=== PATIENT | female | born 1935 | race Caucasian/White ===

== ENCOUNTER 2016-07-24 14:37 | Emergency (ER) | payer MEDICARE ==
--- NOTE | ~2016-07-24 | CT71 ---
[facility] A Service [facility] RADIOLOGY TEXT RESULTS PATIENT: DENA BURNETTE LOCATION: SED : 37 UNIT #: [id number] AGE: [address]: Amalia Rand MD SEX: F ORDER DR: [id number] [place] [id number] E MR#: [id number] Acc #: [id number] NAME: DENA BURNETTE : 1935 SEX: F STUDY DATE/TIME: 07/24/2016 13:58 UNIT: SED ROOM: STUDY DESCRIPTION: CT Head Wo Contrast Attending Physician: Manpreet Schilling M.D. Referring Physician: Manpreet Schilling M.D. Ordering Physician: Manpreet Schilling M.D. Primary Care Physician: Maria C Dorantes M.D. MEDICAL IMAGING REPORT This report is preliminary unless electronic signature is present. EXAM CT head without contrast dated 07/24/[address] head without contrast dated 10/16/2010 HISTORY Patient fell at home while walking today. TECHNIQUE This CT exam was performed with one or more of the following radiation dose reduction techniques: automatic exposure control, adjustment of mA and/or kV according to patient size, and iterative reconstruction. FINDINGS Age-appropriate parenchymal volume is seen. Mild hypodensity is noted in the periventricular white matter. No acute intracranial hemorrhage, space-occupying mass, mass effect, midline shift or hydrocephalus. Paranasal sinuses and mastoid air cells are well-aerated. Imaged orbits with the ocular structures do not demonstrate any significant abnormality. IMPRESSION 1. No acute intracranial abnormality. 2. Mild hypodensities are noted in the periventricular white matter, likely related to mild chronic microvascular ischemic change or migraine based on age and statistics. 1. Dictated by... Herrera Oconnell M.D. THIS IS AN ELECTRONICALLY VERIFIED REPORT Herrera Oconnell M.D. at 07/27/2016 1:38 PM [facility] A Service [facility] RADIOLOGY TEXT RESULTS PATIENT: DENA BURNETTE LOCATION: [facility] : 37 UNIT #: [id number] AGE: [address]: Amalia Rand MD SEX: F ORDER DR: TRUE/gaston TD: 07/24/2016 18:03 JOB #: [id number] MEDICAL IMAGING REPORT Page 1 of 1
--- NOTE | ~2016-07-24 | CT101 ---
[facility] A Service of [facility] RADIOLOGY TEXT RESULTS PATIENT: DENA BURNETTE LOCATION: SED : 37 UNIT #: [id number] AGE: [address]: Amalia Rand MD SEX: F ORDER DR: [id number] [place] [id number] E MR#: [id number] Acc #: [id number] NAME: DENA BURNETTE : 1935 SEX: F STUDY DATE/TIME: 07/24/2016 14:10 UNIT: SED ROOM: STUDY DESCRIPTION: CT Maxillofacial Area Wo Cont Attending Physician: Manpreet Schilling M.D. Referring Physician: Manpreet Schilling M.D. Ordering Physician: Manpreet Schilling M.D. Primary Care Physician: Maria C Dorantes M.D. MEDICAL IMAGING REPORT This report is preliminary unless electronic signature is present. EXAM CT face without contrast 07/24/2016 at 14:10 HISTORY 80-year-old female with bruising of the nose and lip after falling at home today. Hypertension, diabetes. COMPARISON Noncontrast CT head 07/24/2016. TECHNIQUE This CT exam was performed with one or more of the following radiation dose reduction techniques: automatic exposure control, adjustment of mA and/or kV according to patient size, and iterative reconstruction. FINDINGS No acute displaced facial fracture is identified. Major paranasal sinuses appear clear. Mild bony nasal septal deviation toward the right. No temporal mandibular joint dislocation. The mastoid air cells are clear. Visualized brain parenchyma appears moderately atrophic. IMPRESSION 1. No acute facial fracture. Dictated by... Ivett Kraus M.D. THIS IS AN ELECTRONICALLY VERIFIED REPORT Ivett Kraus M.D. at 07/27/2016 8:37 AM LLH/pcl [facility] A Service of [facility] RADIOLOGY TEXT RESULTS PATIENT: DENA BURNETTE LOCATION: SED : 37 UNIT #: [id number] AGE: [address]: Amalia Rand MD SEX: F ORDER DR: TD: 07/24/2016 19:25 JOB #: [id number] MEDICAL IMAGING REPORT Page 1 of 1
--- NOTE | ~2016-07-24 | CT52 ---
[facility] A Service of [facility] RADIOLOGY TEXT RESULTS PATIENT: DENA BURNETTE LOCATION: SED : 37 UNIT #: [id number] AGE: [address]: Amalia Rand MD SEX: F ORDER DR: [id number] [place] [id number] E MR#: [id number] Acc #: [id number] NAME: DENA BURNETTE : 1935 SEX: F STUDY DATE/TIME: 07/24/2016 14:12 UNIT: SED ROOM: STUDY DESCRIPTION: CT Cervical Spine Wo Cont Attending Physician: Manpreet Schilling M.D. Referring Physician: Manpreet Schilling M.D. Ordering Physician: Manpreet Schilling M.D. Primary Care Physician: Maria C Dorantes M.D. MEDICAL IMAGING REPORT This report is preliminary unless electronic signature is present. EXAM CT cervical spine without contrast DATE 07/24/2016 HISTORY Fell at home today. Cut left cheek. Nose and lip bruising. Patient does not remember what happened. Hypertension. Diabetes. COMPARISON None. PROCEDURE 2 mm noncontrast axial images through the cervical spine. Sagittal coronal reformed images were obtained. This CT exam was performed with one or more of the following radiation dose reduction techniques: automatic exposure control, adjustment of mA and/or kV according to patient size, and iterative reconstruction. FINDINGS Study is degraded by patient motion. There is approximate 3 mm of anterolisthesis C2 upon C3 and C4 upon C5. There is degenerative loss of disc height with endplate sclerosis and endplate subchondral cystic change and anterior and posterior osteophyte formation at C5-6 and C6-7. Craniocervical junction appears intact. Facet arthropathy greatest on the right at C3-4 and C5-6. Multilevel neural foraminal narrowing thought to be greatest on the left at C6-7 with severe foraminal stenosis and moderate to severe canal stenosis at that level. Emphysematous changes in lung apices. Degenerative changes in the sternoclavicular joints. [facility] A Service of [facility] RADIOLOGY TEXT RESULTS PATIENT: DENA BURNETTE LOCATION: SED : 37 UNIT #: [id number] AGE: [address]: Amalia Rand MD SEX: F ORDER DR: IMPRESSION 1. No acute cervical spine fracture is seen. 2. Advanced degenerative disc and endplate changes at C5-6 and C6-7. 3. 3 mm anterolisthesis of C2 upon C3 and C4 upon C5 thought to be related to degenerative facet changes. 4. Moderate to severe canal stenosis at C6-7 with severe left neural foraminal narrowing secondary to posterior osteophyte formation uncovertebral spurring. Dictated by... Ivett Kraus M.D. THIS IS AN ELECTRONICALLY VERIFIED REPORT Ivett Kraus M.D. at 07/27/2016 8:37 AM MARLA/angela TD: 07/24/2016 19:46 JOB #: [id number] MEDICAL IMAGING REPORT Page 1 of 1
[2016-07-24 14:12] LABS: BASOPHIL% 0.5 % (0-2.5); EOSINOPHIL# 0.2 X10e3 (0-0.7); EOSINOPHIL% 1.9 % (0.0-7.0); HEMATOCRIT 35.4 % (35.0-45.0); HEMOGLOBIN 11.5 gm/dL (12.0-16.0); LYMPHOCYTE# 1.7 X10e3 (1.0-3.5); LYMPHOCYTE% 17.4 % (17.0-45.0); MEAN CELL VOLUME 88.9 FL (83-96); MEAN CORPUSCULAR HEMOGLOBIN 28.8 PG (28-34); MEAN CORPUSCULAR HGB CONC 32.4 g/dL (30-36); MEAN PLATELET VOLUME 9.4 FL (6.5-11.5); MONOCYTE# 0.4 X10e3 (0-1.0); MONOCYTE% 4.6 % (3.0-12.0); NEUTROPHIL# 7.2 X10e3 (1.5-7.1); NEUTROPHIL% 75.6 % (40-75); PLATELET COUNT 187 X10e3 (140-420); RED BLOOD COUNT 3.99 X10e (3.90-5.30); RED CELL DISTRIBUTION WIDTH 15.2 % (11.0-15.5); WHITE BLOOD COUNT 9.5 X10e3 (4.0-10.5)
[2016-07-24 14:15] LABS: DIFF IND NO
[2016-07-24 14:36] LABS: ALBUMIN SERUM 4.1 g/dL (3.5-5.0); ALKALINE PHOSPHATASE 76 U/L (32-92); ALT (SGPT) 19 U/L (10-40); AST (SGOT) 20 U/L (10-42); BILIRUBIN,TOTAL 0.4 mg/dL (0.2-2.0); BLOOD UREA NITROGEN 35 mg/dL (9-23); BUN/CREATININE RATIO 31.81; CALCIUM SERUM 9.2 mg/dL (8.4-10.2); CARBON DIOXIDE 27 mmol/L (22-31); CHLORIDE 101 mmol/L (100-111); CREATININE SERUM 1.1 mg/dL (0.6-1.4); GLOM FILT RATE Estimated 48.1 mL/min (>60); GLUCOSE FASTING 224 mg/dL (70-110); POTASSIUM 4.5 mmol/L (3.5-5.1); PROTEIN TOTAL SERUM 7.7 g/dL (6.0-8.3); SODIUM 137 mmol/L (135-145)
[~2016-07-24 14:37] MED LIST: ALLEGRA PO; AMITRIPTYLINE H25 MG PO; ASPIRIN PO; BENAZEPRIL PO; CALCIUM + D 6001 TA1 PO; CARDURA PO; DAILY VALUE1 EACH PO; GLUCOPHAGE XR500 MG PO; GLUCOTROL XL PO; HYDROCODON-ACE1 EAC4 PO; NABUMETONE PO; ZOCOR20 MG PO; ZYBAN SR150 MG PO
[2016-07-24 14:38] LABS: BILIRUBIN, DIRECT <0.1 mg/dL (0.0-0.2); BILIRUBIN,INDIRECT 0.3 mg/dL (0.0-0.9)
== END 2016-07-24 15:51 | disposition home or self-care (01) ==
LOC: SED 14:37
PROVIDERS: Emergency Medicine
DX: S09.90XA Unspecified injury of head, initial encounter (principal); S01.511A Laceration without foreign body of lip, initial encounter; S13.4XXA Sprain of ligaments of cervical spine, initial encounter; S00.83XA Contusion of other part of head, initial encounter; I10 Essential (primary) hypertension; E11.9 Type 2 diabetes mellitus without complications; W01.198A Fall on same level from slipping, tripping and stumbling with subsequent striking against other object, initial encounter; Y92.009 Unspecified place in unspecified non-institutional (private) residence as the place of occurrence of the external cause; Z88.8 Allergy status to other drugs, medicaments and biological substances
CPT/HCPCS: 12051; 70450; 70486; 72125; 80048; 80076; 85025; 99284; J2405